=== PATIENT | male | born 1990 | race Caucasian/White ===

== ENCOUNTER 2019-05-04 05:18 | Emergency (ER) | payer SELFPAY ==
[~2019-05-04] VITALS: Ht 177.8 cm; Wt 88.3 kg
[~2019-05-04 05:18] MED LIST: ALBU8.5H8 INH; AMOX500C2 PO; AZIT250T PO; BENZ-6 PO; IBUP800T48 PO; ONDA4TAB14 PO; PRED20TA PO
[2019-05-04 05:22] VITALS: BP 123/75; PULSE 80; RESP 18; Ht 177.8 cm; Wt 88.3 kg
--- NOTE | 2019-05-04 05:34 | ERD ---
ER Documentation Chief Complaint Chief Complaint cough x 10 days, also c/o vomiting after coughing HPI This is a 28-year-old male who presents here in the emergency department with complaints of cough that is on and off for 10 days. Patient added that he has productive. Denies headache, head injury, loss of consciousness, dizziness, neck pain, neck stiffness, throat pain, difficulty swallowing, difficulty breathing lying flat, shoulder pain, chest pain, back pain, abdominal pain, nausea, vomiting, constipation, diarrhea, urinary symptoms, loss of bowel and bladder control, trauma, injury, falls, difficulty walking due to pain, numbness or tingling sensation, calf pain, recent travel, recent major surgery in the last 3 weeks, calf pain, recent long travel, recent exposure to any illness, recent antibiotic use in the last 3 months, fever, chills, seizures. Past medical history: Denies. Surgical history: Denies. Social: Denies smoking, use of alcoholic beverages, use of illegal drugs. ROS All systems reviewed and are negative except as per history of present illness. Medications Home Meds Active Scripts Ondansetron (Ondansetron Odt) 4 Mg Tab.rapdis, 4 MG PO Q6H PRN for NAUSEA AND/OR VOMITING, #20 TAB Prov:ASHLEY GALVAN 05/04/19 Amoxicillin* (Amoxicillin*) 500 Mg Cap, 500 MG PO TID for 7 Days, CAP Prov:ASHLEY GALVAN 05/04/19 Prednisone* (Prednisone*) 20 Mg Tab, 60 MG PO DAILY for 5 Days, TAB Prov:ASHLEY GALVAN 05/04/19 Albuterol Sulfate* (Proair HFA*) 8.5 Gm Hfa.aer.ad, 2 PUFF INH Q4 PRN for WHEEZING, #1 INHALER Prov:ASHLEY GALVAN 05/04/19 Benzonatate* (Tessalon Perle*) 100 Mg Capsule, 100 MG PO Q8H PRN for COUGH, #15 CAP Prov:ASHLEY GALVAN 05/04/19 Ibuprofen* (Motrin*) 800 Mg Tab, 800 MG PO Q8 PRN for PAIN AND OR ELEVATED TEMP, #30 TAB Prov:ASHLEY GALVAN 05/04/19 Azithromycin* (Zithromax*) 250 Mg Tablet, 250 MG PO .ZPACK DIRECTED, #6 TAB TAKE 500 MG (2 TABS) THE FIRST DAY THEN 250 MG (1 TAB) DAYS 2-5 Prov:ASHLEY GALVAN 05/04/19 Allergies Allergies: Coded Allergies: No Known Drug Allergies (Verified Allergy, Unknown, 05/04/19) Physical Exam Vitals Physical Exam Head: Atraumatic Eyes: Normal Conjunctiva ENT: Normal External Ears, Nose and Mouth. Bilateral ears: TMs are not erythematous. No bleeding. No discharge. No hearing loss. No mastoid tenderness. Nose: There is no frontal or maxillary sinus tenderness palpation. Throat: Uvula is in midline and nondisplaced. Tonsils are +1 bilaterally without redness and without exudates. Tolerating secretions. Patent airway. Speaks full and clear sentences. No tripoding. Neck: Full range of motion. No meningismus. No nuchal rigidity. No signs of meningeal irritation. Resp: Clear to auscultation bilaterally. No accessory muscle use in breathing. Cardio: Regular rate and rhythm, no murmurs Abd: Soft, non tender, non distended. Normal bowel sounds. Negative More sign. Negative Mark sign (heel jar test). Negative psoas sign. Negative Rovsing sign. No CVA tenderness. Able to jump 10 times without developing lower abdominal pain. Skin: No petechiae or rashes. Color appears normal for ethnicity. No skin tenting. No signs of severe dehydration. Back: No midline or flank tenderness Ext: No cyanosis, or edema Neur: Awake and alert. No neurological deficits. Psych: Normal Mood and Affect Procedures/MDM Diagnostic tests: Clinical exam. Treatment: P.o. challenge. Re-evaluation: No episode of emesis here in the emergency department. Denies chest pain, back pain, abdominal pain. Respirations even and unlabored. No acc essory muscle use in breathing. Lung sounds are clear to auscultation. Negative More sign. Negative [place] sign (heel jar test). Negative psoas sign. Negative Rovsing sign. No CVA tenderness. Ambulatory with steady gait without pain to abdomen. Stated that he feels much better at this time and that he is ready to go home. Stated that he is comfortable to go home. Differential diagnosis I have low suspicion for sepsis, meningitis, cystitis, peritonsillar abscess, aspiration pneumonia, pneumonia, severe dehydration, bronchospasms. Final diagnosis: Bronchitis. Patient insisted for me to prescribed him Amoxicillin and Azithromycin. Prescription: Azithromycin. Jose Gerardo. Benjamín. Eduardo. Follow-up with PCP in the next 24-48 hours. Come back here in the emergency department for any new symptoms or any worsening symptoms. All questions and concerns were answered. Patient and family members verbalized understanding and agreed with plan of care. Hemodynamically stable on discharge. Departure Diagnosis: Primary Impression: Cough Additional Impression: Bronchitis Condition: Stable Additional Instructions: Follow-up with PCP in the next 24-48 hours. Come back here in the emergency department for any new symptoms or any worsening symptoms. ASHLEY GALVAN May 04, 2019 05:34
== END 2019-05-04 06:16 | disposition home or self-care (01) ==
LOC: FTE 05:18
DX: J40 Bronchitis, not specified as acute or chronic (principal)
CPT/HCPCS: 99283